=== PATIENT | male | born 1995 | race African-American/Black ===

== ENCOUNTER 2016-08-21 20:17 | Emergency (ER) | payer OTHER ==
--- NOTE | 2016-08-21 22:31 | ED Physician Documentation ---
PD HPI SKIN - Stated complaint Stated Complaint: HEAD PX - Chief complaint Chief Complaint: Wound - History obtained from History obtained from: Patient - History of Present Illness Timing - onset: How many days ago (2-3 days of right ear and parietal scalp swelling and some tenderness. Had had recent ear infection Rx with abx (Amox) about 2 weeks ago and felt better. Now with few days of feeling scalp is tender parietal area and also bump behind right ear. No redness nor rash. He is concerned about mastoiditis subsequent to the ear infection.) Timing - duration: Days (2-3) Timing - details: Gradual onset, Still present Location: Scalp (right parietal just above the ear), Face (right postauricular small tender bump. Has some fullness feeling of maxillary sinuses. No fevers. No sore throat. Ear hearing is slightly muffled like "ear needs to clear".) Quality / character: Swelling. No: Painful, Vesicular Associated symptoms: No: Fever, Myalgias Similar symptoms before: Has not had sx before Recently seen: Clinic (for ear pain and congestion. Rx with Amox for ear infection and now on Cetirizine for congestion.) Review of Systems Constitutional: denies: Fever, Chills, Myalgias Ears: reports: Loss of hearing (feels like ear needs to clear), Ear pain (right) Nose: reports: Sinus pressure / pain (maxillary both sides, right more than left.). denies: Rhinorrhea / runny nose, Congestion Throat: denies: Dental pain / toothache, Oral lesions / sores, Sore throat Cardiac: denies: Chest pain / pressure, Palpitations Respiratory: denies: Dyspnea, Cough GI: denies: Abdominal Pain, Nausea, Vomiting, Diarrhea PD PAST MEDICAL HISTORY - Past Medical History Past Medical History: No Cardiovascular: None Respiratory: None Neuro: None Endocrine/Autoimmune: None HEENT: Other (recent right ear infection) - Past Surgical History Past Surgical History: No - Present Medications Home Medications: Ambulatory Orders Medication Instructions Recorded Confirmed Cephalexin [Keflex] 500 mg PO TID #21 capsule 08/21/16 Cetirizine [ZyrTEC] 10 mg PO DAILY #20 tablet 08/21/16 Dexamethasone [Decadron] 4 mg PO DAILY #5 tablet 08/21/16 - Allergies Allergies/Adverse Reactions: Allergies Allergy/AdvReac Type Severity Reaction Status Date / Time No Known Drug Allergies Allergy Verified 08/21/16 20:20 - Social History Does the pt smoke?: No Smoking Status: Never smoker Does the pt drink ETOH?: No Does the pt have substance abuse?: No - Immunizations Immunizations are current?: Yes - POLST Patient has POLST: No PD ED PE NORMAL - Vitals Vital signs reviewed: Yes - General General: Alert and oriented X 3, No acute distress, Well developed/nourished - HEENT HEENT: Ears normal, Moist mucous membranes, Pharynx benign, Dentition benign, Other (some maxillary area tenderness to percussion both sides. No tenderness nor redness over mastoid areas on either side. TMs are normal. Right parietal area just above ear with some swelling of the scalp. No redness nor sores there. no warmth of skin. ) - Neck Neck: Supple, no meningeal sign, Other (right postauricular small lymph node without redness nor fluctuance. 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 Mastoids appear normal. ), EMP read contemporaneously PD MEDICAL DECISION MAKING - ED course Complexity details: considered differential (recent ear infection and he was concerned particularly about mastoiditis (had looked up symptoms). No redness at mastoid nor percussive tenderness, but could not tell him 100% was not the issue, so got CT. This showed good mastoids. There was maxillary wall thickness noted. ), d/w patient Departure - Departure Disposition: 01 Home, Self Care Clinical Impression: Sinusitis, acute Qualifiers: Sinusitis location: maxillary Recurrence: non-recurrent Qualified Code(s): J01.00 - Acute maxillary sinusitis, unspecified Clinical Impression: (Ruled Out): Mastoiditis Condition: Stable Record reviewed to determine appropriate education?: Yes Instructions: ED Sinusitis Abx Tx Follow-Up: KARI BOBO [Primary Care Provider] - Prescriptions: Dexamethasone [Decadron] 4 mg PO DAILY #5 tablet Cephalexin [Keflex] 500 mg PO TID #21 capsule Cetirizine [ZyrTEC] 10 mg PO DAILY #20 tablet Comments: Drink lots of fluids. Tylenol or Naproxen/Ibuprofen for pains. Cetirizine antihistamine daily for 2-3 weeks. Decadron steroid daily for 5 more days. Cephalexin antibiotic as directed for a week. Follow up with PMD in about 5-6 days. Discharge Date/Time: 08/22/16 00:04
[2016-08-21] MEDS ORDERED: CETIRIZINE 10 MG TABLET PO STA (22:44)
[2016-08-21] MEDS ORDERED: DEXAMETHASONE 10 MG/ML VIAL PO STA (22:44)
[2016-08-21] MEDS ORDERED: CEPHALEXIN 250 MG CAPSULE PO STA (22:44)
[2016-08-21] MEDS ORDERED: CEPHALEXIN 250 MG CAPSULE PO ONE (22:49)
[2016-08-21] MEDS ORDERED: CETIRIZINE 10 MG TABLET ONE (22:50)
[2016-08-21] MEDS ORDERED: DEXAMETHASONE 10 MG/ML VIAL ONE (22:50)
--- NOTE | 2016-08-21 23:38 | CT Preliminary Report ---
Exam: CT Facial Bones W/O IMPRESSION: 1. Mild bilateral maxillary sinus mucosal thickening. 2. Otherwise normal noncontrast maxillofacial CT. [facility] SITE ID: [id number]
--- NOTE | 2016-08-21 23:40 | CT Report ---
EXAM: CT MAXILLOFACIAL WITHOUT CONTRAST EXAM DATE: 08/21/2016 11:04 PM. CLINICAL HISTORY: Swelling right sinus and right mastoid areas weeks. COMPARISONS: None. TECHNIQUE: Thin-section axial images were acquired of the face without contrast. Post-processing: Cor onal and sagittal reformats. Other: None. In accordance with CT protocol optimization, one or more of the following dose reduction techniques w ere utilized for this exam: automated exposure control, adjustment of mA and/or KV based on patient s ize, or use of iterative reconstructive technique. FINDINGS: Bones: No fracture or bone lesion. Temporomandibular Joints: The temporomandibular joints are symmetric and normally located. Sinuses: There is mild bilateral maxillary sinus mucosal thickening. There are no sinus fluid levels. Other: None. IMPRESSION: 1. Mild bilateral maxillary sinus mucosal thickening. 2. Otherwise normal noncontrast maxillofacial CT. [facility] Referring Provider Line: [phone] SITE ID: [id number]
[2016-08-22 00:04] VITALS: BP 111/86
== END 2016-08-22 00:04 | disposition home or self-care (01) ==
LOC: ED 20:17
DX: J01.00 Acute maxillary sinusitis, unspecified (principal)
CPT/HCPCS: 70486; 99283; A9270

== ENCOUNTER 2017-03-05 16:22 | Emergency (ER) | payer OTHER ==
[2017-03-05 16:40] VITALS: BP 132/67
--- NOTE | 2017-03-05 16:57 | ED Physician Documentation ---
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 HeYear he is noted basically daily right posterior headaches worse with turning his head with a lump on his occiput and another lump under the angle of the jaw. He has also noticed impotence and he feels like he is not getting much effectiveness out of his workouts. He is not sleeping well. There is no weight loss or gain no. No fevers or chills.) Review of Systems Constitutional: reports: Fatigue. denies: Fever, Chills, Myalgias, Weight Loss , Sweats Ears: denies: Ear pain Nose: denies: Rhinorrhea / runny nose, Congestion PD PAST MEDICAL HISTORY - Past Medical History Past Medical History: No Cardiovascular: None Respiratory: None Neuro: None Endocrine/Autoimmune: None HEENT: Other - Past Surgical History Past Surgical History: No - Present Medications Home Medications: Ambulatory Orders Medication Instructions Recorded Confirmed Cyclobenzaprine [Flexeril] 10 mg PO TID PRN #20 tablet 03/05/17 - Allergies Allergies/Adverse Reactions: Allergies Allergy/AdvReac Type Severity Reaction Status Date / Time No Known Drug Allergies Allergy Verified 03/05/17 16:40 - Social History Does the pt smoke?: No Smoking Status: Never smoker Does the pt drink ETOH?: No Does the pt have substance abuse?: No - Immunizations Immunizations are current?: Yes - POLST Patient has POLST: No PD ED PE NORMAL - Vitals Vital signs reviewed: Yes - General General: Alert and oriented X 3, No acute distress - HEENT HEENT: PERRL, EOMI, Other (He points to the right occiput and under the angle of the jaw and Preauricular region as sites of areas of swelling, I do not appreciate any lymphadenopathy or other swelling or lesions in these areas.) - Neck Neck: Supple, no meningeal sign, No bony TTP - Cardiac Cardiac: RRR, No murmur - Respiratory Respiratory: No respiratory distress, Clear bilaterally - Abdomen Abdomen: Normal bowel sounds, Soft, Non tender - Back Back: No CVA TTP, No spinal TTP - Derm Derm: Normal color, Warm and dry - Extremities Extremities: No edema, No calf tenderness / cord - Neuro Neuro: Alert and oriented X 3, 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 Eye Opening: Spontaneous Motor: Obeys Commands Verbal: Oriented GCS Score: 15 - Psych Psych: Normal mood, Normal affect Results - Vitals Vitals: Vital Signs - 24 hr 03/05/17 16:38 Temperature 36.4 C L Heart Rate 70 Respiratory 18 Rate Blood Pressure 132/67 H O2 Saturation 100 Oxygen O2 Source Room air - Labs Labs: Laboratory Tests 03/05/17 03/05/17 03/05/17 17:15 17:15 17:15 WBC 2.4 L RBC 5.63 Hgb 13.7 L Hct 42.2 MCV 74.8 L MCH 24.4 L MCHC 32.6 RDW 15.5 H Plt Count 150 MPV 8.4 Neut # 1.0 L Lymph # 1.0 L [place] # 0.2 Eos # 0.1 Baso # 0.0 Absolute Nucleated RBC 0.00 Nucleated RBC % 0.1 Manual Slide Review Indicated WBC Morphology NORMAL APPEARANCE Platelet Estimate NORMAL (130-450,000) Platelet Morphology NORMAL APPEARANCE RBC Morph Micro Appear 1+ ACANTHOCYTES Sodium 138 Potassium 3.9 Chloride 104 Carbon Dioxide 26 Anion Gap 8.0 BUN 19 Creatinine 1.1 Estimated GFR (MDRD) 102 Glucose 93 Calcium 9.5 Total Bilirubin 0.6 AST 31 ALT 28 Alkaline Phosphatase 60 Total Protein 8.7 H Albumin 5.0 Globulin 3.7 Albumin/Globulin Ratio 1.4 Lipase 17 L Infectious [place] Assay NEGATIVE PD MEDICAL DECISION MAKING - ED course ED course: 21-year-old gentleman with subacute to chronic headaches, feeling like he is not getting effectiveness of his gym workouts and impotence. I wonder if he might be depressed, but it is notable on his workup that he has leukopenia which is both lymphopenia and neutropenia. The differential diagnosis is broad includes malignancies, viral infections etc. He is advised to follow-up with his doctor urgently for further evaluation and treatment. Departure - Departure Disposition: 01 Home, Self Care Clinical Impression: Lymphopenia Headache Qualifiers: Headache type: tension-type Headache chronicity pattern: chronic headache Intractability: not intractable Qualified Code(s): G44.229 - Chronic tension- type headache, not intractable Neutropenia Qualifiers: Neutropenia type: other Qualified Code(s): D70.8 - Other neutropenia Condition: Good Record reviewed to determine appropriate education?: Yes Instructions: ED Cephalgia Unspecified Prescriptions: Cyclobenzaprine [Flexeril] 10 mg PO TID PRN #20 tablet PRN Reason: Pain Comments: You did have some abnormal findings on your blood work, a low white blood cell counts with both lymphopenia and neutropenia. This [place] and treatment. Your blood pressure was elevated today on check into the emergency department. This does not mean that you have hypertension, it is a common phenomenon to come to the emergency department and have elevated blood pressure. I recommend that you see your primary care physician within the week to have it rechecked when you are feeling better.
--- NOTE | 2017-03-05 17:25 | CT Preliminary Report ---
Exam: CT HEAD W/O IMPRESSION: Normal head CT. [facility] SITE ID: [id number]
[2017-03-05 17:27] LABS: BASOPHILS % (AUTO) 0.8 %; EOSINOPHILS # (AUTO) 0.1 10^3/uL (0.0-0.7); EOSINOPHILS % (AUTO) 2.2 %; HGB - HEMOGLOBIN 13.7 g/dL (14.0-18.0); LYMPHOCYTES % (AUTO) 43.9 %; MEAN CORPUSCULAR HEMOGLOBIN 24.4 pg (27.0-31.0); MEAN CORPUSCULAR HGB CONC 32.6 g/dL (32.0-36.0); MEAN CORPUSCULAR VOLUME 74.8 fL (80.0-94.0); MEAN PLATELET VOLUME 8.4 fL (7.4-11.4); MONOCYTES # (AUTO) 0.2 10^3/uL (0.0-1.0); MONOCYTES % (AUTO) 9.3 %; NEUTROPHILS % (AUTO) 43.8 %; PLT - PLATELET COUNT 150 10^3/uL (130-450); RED BLOOD COUNT 5.63 10^6/uL (4.70-6.10); RED CELL DISTRIBUTION WIDTH 15.5 % (12.0-15.0); WHITE BLOOD COUNT 2.4 x10^3/uL (4.8-10.8)
--- NOTE | 2017-03-05 17:27 | CT Report ---
EXAM: CT HEAD EXAM DATE: 03/05/2017 05:11 PM. CLINICAL HISTORY: Chronic headaches for 1 year. Patient presents with constant headache today. COMPARISON: None. TECHNIQUE: Multiaxial CT images were obtained from the foramen magnum to the vertex. Reformats: Coron al. IV contrast: None. In accordance with CT protocol optimization, one or more of the following dose reduction techniques w ere utilized for this exam: automated exposure control, adjustment of mA and/or KV based on patient s ize, or use of iterative reconstructive technique. FINDINGS: Parenchyma: No intraparenchymal hemorrhage. No evidence of mass, midline shift, or CT findings of inf arction. Branham-white differentiation is distinct. Extraaxial Spaces: Normal for age. No subdural or epidural collections identified. Ventricles: Normal in size and position. Sinuses and Orbits: Imaged paranasal sinuses, orbits, and mastoids show no significant abnormality. Bones: No evidence of fracture or calvarial defect. Other: None. IMPRESSION: Normal head CT. [facility] Referring Provider Line: [phone] SITE ID: [id number]
[2017-03-05 17:39] LABS: ALBUMIN/GLOBULIN RATIO 1.4 (1.0-2.2); BILIRUBIN,TOTAL 0.6 mg/dL (0.2-1.0); CALCIUM 9.5 mg/dL (8.5-10.3); CREATININE 1.1 mg/dL (0.6-1.2); TOTAL PROTEIN 8.7 g/dL (6.7-8.2)
[2017-03-05 18:03] LABS: PLATELET ESTIMATE, MANUAL NORMAL (130-450,000) (NORMAL); PLATELET MORPHOLOGY NORMAL APPEARANCE (NORMAL)
== END 2017-03-05 18:42 | disposition home or self-care (01) ==
LOC: ED 16:22
DX: D72.810 Lymphocytopenia (principal); G44.229 Chronic tension-type headache, not intractable; D70.8 Other neutropenia; R03.0 Elevated blood-pressure reading, without diagnosis of hypertension
CPT/HCPCS: 36415; 70450; 80053; 83690; 85025; 86308; 99283; 99284